=== PATIENT | male | born 2000 | race Caucasian/White ===

== ENCOUNTER 2019-08-18 10:01 | Emergency (ER) | payer OTHER ==
[~2019-08-18] VITALS: Ht 198.1 cm; Wt 83.9 kg
[~2019-08-18 10:01] MED LIST: AMOX500 PO; AMPDEX5; BENZ100A PO; CRUTCH3 USE; ESCI10 PO; INTUNIV4 MG PO; METPHE10 PO; RISP1 PO; TENEX PO; Tenex1 MG
[2019-08-18] MEDS ORDERED: CEPH500 PO (11:18)
[2019-08-18] MEDS ORDERED: Bactrim Ds Tab1 EACH PO (11:18)
== END 2019-08-18 11:23 | disposition home or self-care (01) ==
LOC: ER 10:01
DX: L03.012 Cellulitis of left finger (principal); F90.9 Attention-deficit hyperactivity disorder, unspecified type; F17.200 Nicotine dependence, unspecified, uncomplicated
CPT/HCPCS: 99282

== ENCOUNTER 2019-08-22 10:10 | Emergency (ER) | payer OTHER ==
[~2019-08-22] VITALS: Ht 198.1 cm; Wt 88.5 kg
[~2019-08-22 10:10] MED LIST changes: +Bactrim Ds Tab1 EACH PO; +CEPH500 PO
== END 2019-08-22 12:06 | disposition home or self-care (01) ==
LOC: ER 10:10
DX: L02.512 Cutaneous abscess of left hand (principal); F17.200 Nicotine dependence, unspecified, uncomplicated
CPT/HCPCS: 10060; 99283-25

== ENCOUNTER 2022-09-08 20:41 | Emergency (ER) | payer OTHER ==
[~2022-09-08] VITALS: Ht 200.7 cm; Wt 83.9 kg
[~2022-09-08 20:41] MED LIST changes: +AMOCLA875 PO; +CLIN300 PO; +Percocet 7.5-31 EACH PO; +SULTRIDS PO
[2022-09-08] MEDS ORDERED: CEPH500 PO (20:55)
== END 2022-09-08 20:59 | disposition home or self-care (01) ==
LOC: ER 20:41
DX: L03.115 Cellulitis of right lower limb (principal); F17.210 Nicotine dependence, cigarettes, uncomplicated; Z79.899 Other long term (current) drug therapy
CPT/HCPCS: A9270

== ENCOUNTER 2022-10-21 20:58 | Emergency (ER) | payer OTHER ==
[~2022-10-21] VITALS: Ht 200.7 cm; Wt 83.9 kg
[2022-10-22] MEDS ORDERED: NARCAN4 M1 (00:35)
== END 2022-10-22 00:46 | disposition home or self-care (01) ==
LOC: ER 20:58
DX: T40.411A Poisoning by fentanyl or fentanyl analogs, accidental (unintentional), initial encounter (principal); F17.210 Nicotine dependence, cigarettes, uncomplicated; F11.90 Opioid use, unspecified, uncomplicated
CPT/HCPCS: 99284

== ENCOUNTER 2023-03-21 17:49 | Emergency (ER) | payer OTHER ==
[~2023-03-21] VITALS: Ht 200.7 cm; Wt 88.5 kg
[~2023-03-21 17:49] MED LIST changes: +NARCAN4 M1
[2023-03-21 17:55] VITALS: BP 149/98
[2023-03-21] MEDS ORDERED: AMOCLA875 PO (19:11)
== END 2023-03-21 19:19 | disposition home or self-care (01) ==
LOC: ER 17:49
DX: K04.7 Periapical abscess without sinus (principal); F17.210 Nicotine dependence, cigarettes, uncomplicated
CPT/HCPCS: 41800; 96372-59; 99282-25; A9270; J1885

== ENCOUNTER 2023-12-07 19:40 | Emergency (ER) | payer OTHER ==
[~2023-12-07] VITALS: Ht 200.7 cm; Wt 95.2 kg
[2023-12-07 20:14] VITALS: BP 153/85
[2023-12-07] MEDS ORDERED: Diphth,Pertuss(Acell),Tet Vac 0.5 ML VIAL IM ONE (20:20)
== END 2023-12-07 20:57 | disposition home or self-care (01) ==
LOC: ER 19:40
DX: S50.11XA Contusion of right forearm, initial encounter (principal); F17.210 Nicotine dependence, cigarettes, uncomplicated; V18.4XXA Pedal cycle driver injured in noncollision transport accident in traffic accident, initial encounter
CPT/HCPCS: 73030; 73060; 73090; 73100; 99283-25

== ENCOUNTER 2024-02-10 12:07 | Emergency (ER) | payer OTHER ==
[~2024-02-10] VITALS: Ht 200.7 cm; Wt 88.9 kg
[2024-02-10 12:38] VITALS: BP 147/84
[2024-02-10] MEDS ORDERED: TRAZ50 PO (12:39)
[2024-02-10] MEDS ORDERED: ATOM40 PO (12:39)
[2024-02-10] MEDS ORDERED: AMOCLA875 PO (13:30)
== END 2024-02-10 14:01 | disposition home or self-care (01) ==
LOC: ER 12:07
DX: K04.7 Periapical abscess without sinus (principal); F17.210 Nicotine dependence, cigarettes, uncomplicated; Z79.899 Other long term (current) drug therapy
CPT/HCPCS: 99282

== ENCOUNTER 2024-04-17 17:46 | Emergency (ER) | payer OTHER ==
[~2024-04-17] VITALS: Ht 200.7 cm; Wt 88.5 kg
[~2024-04-17 17:46] MED LIST changes: +ATOM40 PO; +TRAZ50 PO
[2024-04-17 17:58] VITALS: BP 146/97
[2024-04-17] MEDS ORDERED: Amoxicillin/Clavulanate K 875 MG Tab PO ONE (19:05)
[2024-04-17] MEDS ORDERED: AMOCLA875 PO (19:06)
== END 2024-04-17 19:13 | disposition home or self-care (01) ==
LOC: ER 17:46
DX: K04.7 Periapical abscess without sinus (principal); K02.9 Dental caries, unspecified; K06.9 Disorder of gingiva and edentulous alveolar ridge, unspecified; F17.210 Nicotine dependence, cigarettes, uncomplicated; F19.10 Other psychoactive substance abuse, uncomplicated
CPT/HCPCS: 64400; 99282-25; A9270

== ENCOUNTER 2024-10-09 01:05 | Emergency (ER) | payer OTHER ==
[~2024-10-09] VITALS: Ht 200.7 cm; Wt 83.9 kg
[2024-10-09 01:19] VITALS: BP 157/103
[2024-10-09] MEDS ORDERED: Acetaminophen 500 MG Tab PO ONE (01:50)
[2024-10-09] MEDS ORDERED: Amoxicillin/Clavulanate K 875 MG Tab PO ONE (01:50)
[2024-10-09] MEDS ORDERED: Ketorolac Tromethamine 30mg Vial IV ONE (01:50)
[2024-10-09] MEDS ORDERED: AMOCLA875 PO (01:53)
[2024-10-09] MEDS ORDERED: Ketorolac Tromethamine 30mg Vial IM ONE (02:05)
== END 2024-10-09 02:20 | disposition home or self-care (01) ==
LOC: ER 01:05
DX: K05.30 Chronic periodontitis, unspecified (principal); F17.210 Nicotine dependence, cigarettes, uncomplicated; Z79.2 Long term (current) use of antibiotics; Z79.899 Other long term (current) drug therapy
CPT/HCPCS: 96372; 99282-25; A9270; J1885

== ENCOUNTER 2024-12-21 00:06 | Emergency (ER) | payer OTHER ==
[~2024-12-21] VITALS: Ht 200.7 cm; Wt 86.2 kg
[2024-12-21 00:11] VITALS: BP 144/86
[2024-12-21] MEDS ORDERED: AMOCLA875 PO (00:20)
[2024-12-21] MEDS ORDERED: Ketorolac Tromethamine 10 MG Tab PO ONE (00:20)
[2024-12-21] MEDS ORDERED: Amoxicillin/Clavulanate K 875 MG Tab PO ONE (00:20)
== END 2024-12-21 00:38 | disposition home or self-care (01) ==
LOC: ER 00:06
DX: K08.89 Other specified disorders of teeth and supporting structures (principal)
CPT/HCPCS: 99282; A9270

== ENCOUNTER 2025-04-13 01:03 | Emergency (ER) | payer OTHER ==
[~2025-04-13] VITALS: Ht 200.7 cm; Wt 83.9 kg
[2025-04-13 01:15] VITALS: BP 133/87
[2025-04-13 02:12] LABS: BASOPHILS ABSOLUTE AUTO 0.04 K/mm3 (0.00-0.23); BASOPHILS PERCENT AUTO 1 % (0-2); EOSINOPHILS ABSOLUTE AUTO 0.11 K/mm3 (0.00-0.68); EOSINOPHILS PERCENT AUTO 1 % (0-6); Hematocrit 42.1 % (37.0-53.0); Hemoglobin 15.1 g/dL (13.5-17.5); IMMATURE GRAN ABSOLUTE AUTO 0.02 K/mm3 (0.00-0.10); IMMATURE GRAN PERCENT AUTO 0 % (0-1); LYMPHOCYTES ABSOLUTE AUTO 2.43 K/mm3 (0.84-5.20); LYMPHOCYTES PERCENT AUTO 31 % (21-46); MONOCYTES ABSOLUTE AUTO 0.58 K/mm3 (0.16-1.47); MONOCYTES PERCENT AUTO 7 % (4-13); Mean Corpuscular HGB Conc 35.9 g/dL (31.5-36.5); Mean Corpuscular Volume 85 fL (80-100); NEUTROPHILS ABSOLUTE AUTO 4.65 K/mm3 (1.96-9.15); NEUTROPHILS PERCENT AUTO 59 % (41-73); NRBC ABSOLUTE 0.00 K/mm3 (0.00-0.02); NRBC Auto 0.0 /100 WBC (0.0-0.2); Platelet Count 201 K/mm3 (150-400); RDW Coefficient Variation 12.1 % (11.7-14.2); RDW Standard Deviation 37.0 fL (35.1-46.3)
[2025-04-13 02:29] LABS: Alanine Aminotransfer (ALT/SGP 155.0 U/L (12-78); Albumin, Blood 3.9 g/dL (3.4-5.0); Albumin/Globulin Ratio 1.1 (0.8-1.8); Anion Gap 9.0 mmol/L (3-11); Aspartate Aminotrans (AST/SGOT 48.0 U/L (12-37); Bilirubin, Total 0.6 mg/dL (0.1-1.0); Blood Urea Nitrogen 13.0 mg/dL (8-24); CO2, Blood 27.0 mmol/L (21-32); Calcium, Blood 8.7 mg/dL (8.5-10.1); Chloride, Blood 106.0 mmol/L (98-108); Creatinine, Blood 1.15 mg/dL (0.60-1.20); Globulin, Blood 3.6 g/dL (2.2-4.0); Glucose, Blood 82.0 mg/dL (70-99); Potassium, Blood 3.8 mmol/L (3.5-5.5); Sodium, Blood 138.0 mmol/L (136-145); Total Protein, Blood 7.5 g/dL (6.4-8.2)
[2025-04-13] MEDS ORDERED: IBU600 MG PO (03:49)
[2025-04-13] MEDS ORDERED: CYCL10 PO (03:49)
[2025-04-13] MEDS ORDERED: LIDOCAINE1 EAC1 TOP (03:49)
[2025-04-13] MEDS ORDERED: Ketorolac Tromethamine 30mg Vial IV ONE (03:50)
[2025-04-13] MEDS ORDERED: Lidocaine 4% 1 Patch TOP ONE (03:50)
== END 2025-04-13 04:04 | disposition home or self-care (01) ==
LOC: ER 01:03
PROVIDERS: Emergency Medicine
DX: S22.42XA Multiple fractures of ribs, left side, initial encounter for closed fracture (principal); F17.210 Nicotine dependence, cigarettes, uncomplicated; Z79.899 Other long term (current) drug therapy; V00.131A Fall from skateboard, initial encounter; Y93.51 Activity, roller skating (inline) and skateboarding
CPT/HCPCS: 71260; 74177; 80053; 83690; 84484; 85025; 93005; 93010; 99284-25; A9270; J1885; Q9967